=== PATIENT | male | born 1960 | race Two or more races ===

== ENCOUNTER 2024-07-08 19:46 | Emergency (ER) | payer MEDICAID, OTHER ==
[~2024-07-08] VITALS: Ht 177.8 cm; Wt 101.7 kg
[2024-07-08 20:20] VITALS: BP 114/71; PULSE 76; RESP 18; TEMP 98.8; O2SAT 99
[2024-07-08] MEDS: LIDOCAINE 1% HCL (LOCAL ANESTH.) INJ 20ML MDV ID ONE (21:45)
[2024-07-08] MEDS: TETANUS-DIPTH-ACEL PERTUSSIS 0.5ML SYR Tdap IM ONE (23:03)
[2024-07-08] MEDS ORDERED: AUG875T PO (23:50)
== END 2024-07-09 00:41 | disposition home or self-care (01) ==
LOC: ER 19:46
DX: S61.412A Laceration without foreign body of left hand, initial encounter (principal); I10 Essential (primary) hypertension; W54.0XXA Bitten by dog, initial encounter; Y93.89 Activity, other specified; Y92.89 Other specified places as the place of occurrence of the external cause; Y99.8 Other external cause status
CPT/HCPCS: 12001; 90471; 90715; J2001